=== PATIENT | female | born 2000 | race African-American/Black ===

== ENCOUNTER 2023-06-20 02:26 | Inpatient (IN) ==
[2023-06-20 02:37] VITALS: BMI 25.6
[2023-06-20 02:49] LABS: BASOPHILS % (AUTO) 0.5 % (0.2-1.0); EOSINOPHILS % (AUTO) 0.2 % (0.9-2.9); HEMATOCRIT 30.1 % (36.0-47.0); HEMOGLOBIN 10.4 g/dL (12.0-16.0); LYMPHOCYTES # (AUTO) 2.1 X10^3/uL (1.3-2.9); LYMPHOCYTES % (AUTO) 27.6 % (21.0-51.0); MEAN CORPUSCULAR HEMOGLOBIN 30.1 pg (27.0-34.0); MEAN CORPUSCULAR HGB CONC 34.7 g/dL (33.0-35.0); MEAN CORPUSCULAR VOLUME 86.7 fL (80.0-100.0); MEAN PLATELET VOLUME 9.2 fL (7.4-11.0); MONOCYTES # (AUTO) 0.7 x10^3/uL (0.3-0.8); MONOCYTES % (AUTO) 9.3 % (0.0-13.0); NEUTROPHILS # (AUTO) 4.7 x10^3/uL (2.2-4.8); NEUTROPHILS % (AUTO) 62.4 % (42.0-75.0); PLATELET COUNT 234 X10^3/uL (150.0-450.0); RED BLOOD COUNT 3.47 X10^6/uL (3.5-5.4); RED CELL DISTRIBUTION WIDTH 13.8 % (11.6-16.5); WHITE BLOOD COUNT 7.6 X10^3/uL (3.6-10.0)
[2023-06-20 02:52] LABS: AMNISURE ROM TEST NO MEMBRANES RUPTURE (NO RUPTURE)
[2023-06-20] MEDS ORDERED: LR 1,000 ML IV 1,000 ML IV ONE ×2 (03:01→03:03)
[2023-06-20 03:02] LABS: ALANINE AMINOTRANSFERASE 14 Units/L (12-78); ALBUMIN 2.3 g/dL (3.4-5.0); ALKALINE PHOSPHATASE 234 Units/L (46-116); ASPARTATE AMINO TRANSFERASE 20 Units/L (15-37); BLOOD UREA NITROGEN 6 mg/dL (7-18); CALCIUM 7.9 mg/dL (8.5-10.1); CARBON DIOXIDE 23.2 mmol/L (21-32); CHLORIDE 105 mmol/L (98-107); COR CA(FOR HYPOALB) 9.3 mg/dL (8.5-10.1); CREATININE 0.83 mg/dL (0.55-1.02); GLUCOSE 92 mg/dL (65-99); POTASSIUM 3.7 mmol/L (3.5-5.1); SODIUM 139 mmol/L (136-145); TOTAL PROTEIN 6.3 g/dL (6.4-8.2); eGFR NON BLACK RACES > 60 (>60)
[2023-06-20] MEDS ORDERED: ANCEF VIAL 1 GRAM IVP ONE (03:37)
[2023-06-20] MEDS ORDERED: ZOFRAN INJ 4 MG VIAL ONE (03:42)
[2023-06-20] MEDS ORDERED: PEPCID 20 MG VIAL ONE (03:46)
[2023-06-20] MEDS ORDERED: DILAUDID INJ ONE (03:50)
[2023-06-20] MEDS ORDERED: ANCEF VIAL 1 GRAM ONE (04:02)
[2023-06-20] MEDS ORDERED: NS 100 ML IV 100 ML ONE (04:02)
[2023-06-20] MEDS ORDERED: XYLOCAINE 2 % (PLAIN) ONE (04:09)
[2023-06-20] MEDS ORDERED: NEO-SYNEPHRINE INJ ONE (04:09)
[2023-06-20] MEDS ORDERED: EPHEDRINE SULFATE INJ ONE (04:09)
[2023-06-20] MEDS ORDERED: DIPRIVAN VIAL 20 ML ONE (04:45)
[2023-06-20 04:47] LABS: BILIRUBIN,URINE NEGATIVE (NEGATIVE); BLOOD/HEMOGLOBIN,URINE NEGATIVE (NEGATIVE); GLUCOSE, URINE NEGATIVE (NEGATIVE); KETONES,URINE 1+ (NEGATIVE); LEUKOCYTE ESTERASE ,URINE NEGATIVE (NEGATIVE); NITRITES,URINE NEGATIVE (NEGATIVE); PROTEIN,URINE NEGATIVE (NEGATIVE); UROBILINOGEN,URINE NORMAL (NORMAL)
[2023-06-20 04:49] LABS: APPEARANCE,URINE CLEAR (CLEAR); COLOR,URINE PALE YELLOW (YELLOW)
[2023-06-20] MEDS ORDERED: PITOCIN ONE ×2 (04:53→04:54)
[2023-06-20] MEDS ORDERED: PRECEDEX INJ VIAL IVP ONE (05:03)
[2023-06-20] MEDS ORDERED: DILAUDID INJ IVP PRN (05:19)
[2023-06-20] MEDS ORDERED: PERCOCET TAB 5/325 MG PO PRN (05:19)
[2023-06-20] MEDS ORDERED: ZOFRAN INJ 4 MG VIAL IVP PRN (05:19)
[2023-06-20] MEDS ORDERED: BARHEMSYS INJ IVP PRN (05:19)
[2023-06-20] MEDS ORDERED: TORADOL 30 MG VIAL IVP PRN (05:19)
[2023-06-20] MEDS ORDERED: REGLAN INJ 10 MG VIAL IVP PRN ×2 (05:19)
[2023-06-20] MEDS ORDERED: BENADRYL INJ 50 MG VIAL IVP PRN ×2 (05:19)
[2023-06-20] MEDS ORDERED: NARCAN INJ IVP PRN (05:19)
[2023-06-20] MEDS ORDERED: NS 100 ML IV 100 ML with VENOFER 400 MG IV NR ×4 (05:33→11:00)
[2023-06-20] MEDS ORDERED: MOTRIN TAB 800 MG PO PRN (05:44)
[2023-06-20] MEDS ORDERED: AMBIEN PO PRN (05:44)
[2023-06-20] MEDS ORDERED: MILK OF MAGNESIA PO PRN (05:44)
[2023-06-20] MEDS: ZOFRAN INJ 4 MG VIAL IVP SCH ×4 (06:59→22:59)
[2023-06-20] MEDS ORDERED: PRENATAL PLUS PO SCH (09:00)
[2023-06-20] MEDS ORDERED: PHENERGAN INJ 25 MG IM PRN (09:56)
[2023-06-20] MEDS ORDERED: LEXAPRO PO SCH (10:00)
[2023-06-20] MEDS: DILAUDID INJ IVP PRN (11:07)
[2023-06-20] MEDS ORDERED: COLACE CAP 100 MG PO SCH (21:00)
[2023-06-20] MEDS: NORCO 7.5/325 MG TAB PO PRN (22:58)
[2023-06-20 22:59] VITALS: RESP 18
[2023-06-20] MEDS: BACTROBAN TOPICAL OINT TOP SCH (22:59)
[2023-06-21] VITALS: PULSE 86
[2023-06-21] MEDS: DILAUDID INJ IVP PRN (01:16)
[2023-06-21 04:22] VITALS: TEMP 98.4; O2SAT 98
[2023-06-21 04:57] LABS: HEMATOCRIT 25.9 % (36.0-47.0)
[2023-06-21 04:58] LABS: HEMOGLOBIN 8.5 g/dL (12.0-16.0)
[2023-06-21 05:20] VITALS: BP 140/92
[2023-06-21] MEDS ORDERED: NORCO 7.5/325 MG TAB PO PRN (05:30)
[2023-06-21] MEDS: NORCO 7.5/325 MG TAB PO PRN (06:11)
[2023-06-21] MEDS: BACTROBAN TOPICAL OINT TOP SCH (06:11)
== END 2023-06-21 10:48 | disposition home or self-care (01) | DRG 788 ==
LOC: ER 02:26 → LD 03:02 → MED/SURG 05:45
PROVIDERS: ADMIT Obstetrics & Gynecology Obstetrics; ATTEND Obstetrics & Gynecology Obstetrics
DX: O24.410 Gestational diabetes mellitus in pregnancy, diet controlled; O13.3 Gestational [pregnancy-induced] hypertension without significant proteinuria, third trimester; O34.211 Maternal care for low transverse scar from previous cesarean delivery; Z37.0 Single live birth; Z3A.39 39 weeks gestation of pregnancy; N85.8 Other specified noninflammatory disorders of uterus